=== PATIENT | male | born 1990 | race Caucasian/White ===

== ENCOUNTER 2021-03-05 18:11 | Emergency (ER) | payer BC ==
[~2021-03-05] VITALS: Ht 188 cm; Wt 85.0 kg
[2021-03-05 18:32] VITALS: BP 106/67
[2021-03-05] MEDS ORDERED: DIPH,PERTUSS(ACELL),TET VAC/PF 0.5 ML IM-VACC ONE ×2 (18:37→19:00)
--- NOTE | 2021-03-05 18:42 | NUR ---
REHAB TRAINER: PT DISCHARGED BY VIVIANA WOLFE
--- NOTE | 2021-03-05 18:42 | NUR ---
TDaP given with aseptic technique in triage and d/c'd from here.
== END 2021-03-05 18:43 | disposition home or self-care (01) ==
LOC: ED 18:30
DX: S60.512A Abrasion of left hand, initial encounter (principal); S60.511A Abrasion of right hand, initial encounter; X58.XXXA Exposure to other specified factors, initial encounter; Y93.89 Activity, other specified; Y92.89 Other specified places as the place of occurrence of the external cause; Y99.8 Other external cause status
CPT/HCPCS: 90471; 90715; 99283